=== PATIENT | female | born 1975 | race Caucasian/White ===

== ENCOUNTER 2017-10-30 06:49 | Inpatient (IN) | payer OTHER, MEDICARE ==
[~2017-10-30] VITALS: Ht 162.6 cm; Wt 102.8 kg
[~2017-10-30 06:49] MED LIST: ATOR20TA15 PO; GEMF600T PO; GLIM4TAB PO; HYDR-3583 PO; HYDR12.56 PO; LEVE500 PO; LISI40TA PO; METF1000 PO; MOBI15TA PO; MULT10CA PO
[2017-10-30] MEDS ORDERED: LIDOCAINE 1%/EPINEPHrine 1:100,000 SOLN 30 ML VIAL ONE (07:20)
[2017-10-30] MEDS ORDERED: MICROFIBRILLAR COLLAGEN HEMOSTAT 70 X 35 MM BANDAGE ONE (07:20)
[2017-10-30] MEDS ORDERED: GELFOAM SIZE 100 ONE (07:21)
[2017-10-30] MEDS ORDERED: ceFAZolin 2 GM PREMIX 50 ML ONE (07:21)
[2017-10-30] MEDS ORDERED: FUROSEMIDE 40 MG/4 ML VIAL ONE (07:21)
[2017-10-30] MEDS ORDERED: levETIRAcetam 500 MG/5 ML VIAL IV ONE (07:21)
[2017-10-30] MEDS ORDERED: GENTAMICIN SULFATE 80 MG/2 ML VIAL ONE (07:21)
[2017-10-30] MEDS ORDERED: BACITRACIN TOP OINT 15 GM TUBE ONE (07:21)
[2017-10-30] MEDS ORDERED: THROMBIN (TOPICAL) 5,000 UNIT VIAL ONE (07:21)
[2017-10-30] MEDS ORDERED: MANNITOL INJ 100 ML ONE (07:22)
[2017-10-30] MEDS ORDERED: LANTUS2P SQ (07:26)
[2017-10-30] MEDS ORDERED: SODIUM CHLOR 0.9% 1000 ML INJ 1,000 ML IV SCH (07:30)
[2017-10-30] MEDS ORDERED: LACTATED RINGER'S 1000 ML IV PRN (07:30)
[2017-10-30] MEDS ORDERED: SODIUM CHLORID 0.9% 500 ML IV PRN (07:30)
[2017-10-30] MEDS ORDERED: VANCOMYCIN 1 GM/200 ML PREMIX ON-CALL IV SCH (07:30)
[2017-10-30] MEDS ORDERED: CHLORHEXIDINE GLUCONATE 2 % 1 PACK (2 CLOTHS) TOPICAL PRN (07:30)
[2017-10-30] MEDS ORDERED: METOPROLOL TARTRATE 25 MG TAB PO PRN (07:30)
[2017-10-30] MEDS ORDERED: POVIDONE IODINE 5% (ANTISEPSIS KIT) 4 APPLICATIONS EACH NARE PRN (07:30)
[2017-10-30 07:41] LABS: BILIRUBIN, URINE NEG (NEG); BLOOD, URINE MOD (NEG); GLUCOSE,URINE NEG (NEG); KETONE, URINE NEG (NEG); NITRITE,URINE NEG (NEG); PH, URINE 5.5 (5.0-8.5); SQUAMOUS EPITHELIAL CELL URINE 17 /hpf (0-5); URINE COLOR YELLOW (YELLW/STRAW); URINE LEUKOCYTE ESTERASE NEG (NEG)
[2017-10-30] MEDS ORDERED: GADODIAMIDE PF 287 MG/ML 20 ML VIAL (for RAD MRI) IVCONTRAST ONE (09:03)
--- NOTE | 2017-10-30 09:50 | RADRPT ---
EXAM DATE/TIME: 10/30/2017 08:55 [facility] COMPARISON: No previous studies available for comparison. INDICATIONS : Mass. CONTRAST: 19 cc Omniscan (gadodiamide) IV MEDICAL HISTORY : Hypertension. Diabetes mellitus type 2. SURGICAL HISTORY : Carpal tunnel syndrome. External fixator and plate in left arm. ENCOUNTER: Initial ACUITY: 1 month PAIN SCORE: 0/10 LOCATION: head. TECHNIQUE: An MRI brain stealth procedure was performed. The information will be used in the OR for localizatio n. FINDINGS: A homogeneously enhancing extra-axial mass is identified in the left frontoparietal region. It measur es 1.6 x 3.9 x 3.6 cm in size. The mass effaces both the pre-and post central gyri. Minimal T2 hyperi ntensity is identified in the subcortical white matter of side-port the post central gyrus. Brain is otherwise unremarkable with no other intra-axial abnormalities. CONCLUSION: Moderate-sized enhancing left frontoparietal extra-axial mass characteristic of meningioma as describ ed. Sandip Busch MD on October 30, 2017 at 9:32 Board Certified Radiologist. This report was verified electronically.
[2017-10-30] MEDS ORDERED: ACETAMINOPHEN 1000 MG/100 ML 100 ML IV ONE (09:53)
[2017-10-30] MEDS ORDERED: ARTIFICIAL TEARS OPTH OINT 3.5 APPLIC/3.5 GM TUBO ONE (09:53)
[2017-10-30] MEDS ORDERED: MORPHINE SULFATE 4 MG/ML INJ IV PUSH PRN (10:00)
[2017-10-30] MEDS ORDERED: ACETAMINOPHEN 325 MG TAB PO PRN (10:00)
[2017-10-30] MEDS ORDERED: CALCIUM GLUCONATE 10% 1 GM/10 ML VIAL IV PRN (10:00)
[2017-10-30] MEDS ORDERED: BISACODYL 10 MG SUPP RECTAL PRN (10:00)
[2017-10-30] MEDS ORDERED: ACETAMINOPHEN/HYDROcodone 325 MG/10 MG TAB PO PRN ×2 (10:00)
[2017-10-30] MEDS ORDERED: POTASSIUM CHLOR 20 MEQ PREMIX 100 ML IV PRN (10:00)
[2017-10-30] MEDS ORDERED: MAGNESIUM SULFATE INJ 4 GM in SODIUM CHLORIDE 0.9% INJ 100 ML IV PRN (10:00)
[2017-10-30] MEDS ORDERED: ONDANSETRON HCL 4 MG/2 ML VIAL IV PUSH PRN (10:00)
[2017-10-30] MEDS ORDERED: GLUCAGON 1 MG/ML VIAL OTHER PRN (10:15)
[2017-10-30] MEDS ORDERED: DEXTROSE 50% IN WATER 50 ML VIAL(D50) IV PUSH PRN (10:15)
[2017-10-30] MEDS ORDERED: levETIRAcetam INJ 500 MG in SODIUM CHLORIDE 0.9% INJ 100 ML IV SCH (11:16)
[2017-10-30] MEDS ORDERED: PROPOFOL 500 MG/50 ML INJ 100 ML ONE (11:29)
[2017-10-30] MEDS ORDERED: ceFAZolin 2 GM PREMIX 50 ML IV ONE (11:38)
[2017-10-30] MEDS ORDERED: PROPOFOL 200 MG/20 ML AMP IV ONE (12:00)
[2017-10-30] MEDS ORDERED: ROCURONIUM INJ 50 MG/5 ML SYRINGE IV PUSH ONE (12:00)
[2017-10-30] MEDS ORDERED: LACTATED RINGER'S 1000 ML INJ 2,000 ML IV ONE (12:00)
[2017-10-30] MEDS: INSULIN ASPART SUPPLEMENTAL SCALE SQ SCH ×3 (12:00→20:03)
[2017-10-30] MEDS ORDERED: PHENYLEPH/NS 1000 MCG/10 ML SYR IV ONE (12:00)
[2017-10-30] MEDS ORDERED: ONDANSETRON HCL 4 MG/2 ML VIAL IV ONE (12:00)
[2017-10-30] MEDS ORDERED: DEXAMETHASONE SOD PHOS 4 MG/ML VIAL IV ONE (12:00)
[2017-10-30] MEDS ORDERED: SODIUM CHLORID 0.9% 500 ML INJ 500 ML IV ONE (12:00)
[2017-10-30] MEDS ORDERED: GLYCOPYRROLATE 1 MG/5 ML SYRINGE IV PUSH ONE (12:00)
[2017-10-30] MEDS ORDERED: NEOSTIGMINE 5 MG/5 ML SYRINGE IV PUSH ONE (12:00)
[2017-10-30] MEDS ORDERED: LIDOCAINE HCL 1% PF 5 ML SYRINGE OTHER ONE (12:00)
[2017-10-30] MEDS ORDERED: LABETALOL HCL 100 MG/20 ML VIAL IV ONE (12:00)
--- NOTE | 2017-10-30 12:27 | PD.OP ---
Operative Report Date of Surgery: Oct 30, 2017 Preoperative Diagnosis: Left extraaxial mass Postoperative Diagnosis: Left parietal meningioma Procedure: Stereotactic left parietal image-guided craniotomy, resection of meningioma. Microsurgical dissection Anesthesia: general endotracheal Surgeon: Urbano Gomes Personal Service Representative(s): Nicole Grayson Operation and Findings: INTRAOPERATIVE FINDINGS Dural base right frontal mass consistent with meningioma. INDICATIONS Ms Almendarez is a 42-year-old female who presented with recurrent seizures. She was found to have a large dural base frontal parietal mass with suspicion for a meningioma. This was causing mass effect on the underlying brain and was growing in serial MRI's. Surgical resection was indicated. I have discussed the [id number] details of the procedure, its indications, alternatives, risks and potential complications with the patient including but not limited to the risk of infection, hemorrhage, paralysis, stroke, heart attack, even vegetative state or even the possibility of . The patient fully understands. All her questions were answered. No guarantees were given. She voiced requesting the procedure and provided informed consent. She has been offered the alternative of not having aggressive management. DETAILS OF THE SURGICAL PROCEDURE Prior to the surgery the patient underwent MRI of the brain according to the stereotactic protocol. The information was transferred to the workstation located in the operative suite. Preoperative registration was performed. The patient was then transferred to the operating room. After induction of general anesthesia, endotracheal intubation was done. A Best catheter, bilateral JANNETTE hose, sequential compression devices were placed and kept throughout the procedure. The patient was positioned supine on a 30/80 table over gel rolls with her head in a flexed and rigid fixation using the [place] head char filter tank tender. All pressure points were carefully padded with egg crate mattress. The eyes were tapped shut after ointment was applied by the anesthesiologist to prevent corneal abrasion. A Taqueria hugger was placed over the expossed lower body to maintain control of the core body temperature. The electrophysiological team placed the needles and electrodes in their proper location and baseline SSEP's evoked potentials were registered. The rigid reference body was attached to the head char filter tank tender and intraoperative registration was performed with a brainlab laser. The frontotemporal parietal area was shaved, prepped and draped in the usual sterile fashion. A standard horseshoe incision was outlined on the scalp and infiltrated with 1% lidocaine with epinephrine. The skin incision was made with a #10 blade down to the level of the periosteum in the frontoparietal region and to the temporalis fascia in the temporal region. Mela clips were applied to the scalp. Using a Bovie, the temporalis fascia and muscle were incised and a subperiosteal dissection was performed reflecting the scalp flap inferiorly. The scalp was covered with a moist sponge and held in position using fish hooks. The TPS drill was brought to the field and a bur hole was made in the parietal region using the craniotome attachment. Then, using the footplate attachment, a craniotomy flap was elevated. The dura was bulging, with obvious mass effect due to the underlying tumor. The tumor was identified with the brainlab, and the dura was opened with a 15 blade and metzembaun sissors and retracted with 4- 0 Neurolon sutures attached to the fascia. A large dural based mass was identified. At this point of the procedure the operative microscope was draped in the usual sterile fashion and brought to the field. The rest of the surgical procedure was performed using microdissection technique with the exception of the closure. Under the operative microscope the mass was resected using microsurgical dissection technique, with the micro-bipolar forceps, microscissors, micro- suction, and gentle irrigation, preserving the tumor-arachnoid interface intact. The specimen was sent to the lab for histological analysis. Appropriate hemostasis was then secured using bipolar rotary pump operator. Then the incision was irrigated with saline solution. The dural edges were tacked to the bone. The craniotomy flap was then repositioned and secured in place using Striker plates and screws. A 7 millimeter Tino-Rowell drain was then left in the subgaleal space and externalized through a separate stab incision. The incision was then closed in layers. 0 Vicryl in interrupted sutures were used to close the temporalis fascia. The galea was closed with interrupted 3- 0 Vicryl. Jaden were applied to the skin. The drain was secured with a 3-0 nylon. At the end of the procedure, the sponge, needle and instrument counts were all correct. Estimated blood loss was less than 100 cc. No blood transfusion was given. No intraoperative complications occurred. The patient received prophylactic antibiotics. The patient was then transferred to the recovery room in stable condition. COMPLICATIONS None Urbano Gomes MD Oct 30, 2017 12:27
[2017-10-30] MEDS ORDERED: DO NOT ADM ANY ANTICOAGULANT DRUGS PRN (13:10)
[2017-10-30] MEDS: NS + KCL 20 MEQ INJ 1,000 ML IV SCH ×2 (13:30→22:00)
[2017-10-30] MEDS ORDERED: FOSPHENYTOIN SODIUM 500 MG PE/10 ML VIAL IM ONE (13:35)
[2017-10-30] MEDS ORDERED: MIDAZOLAM HCL 2 MG/2 ML VIAL ONE (13:35)
[2017-10-30] MEDS ORDERED: FOSPHENYTOIN INJ 1,000 MGPE in SODIUM CHLORIDE 0.9% INJ 50 ML IV ONE (14:30)
--- NOTE | 2017-10-30 14:35 | EKG ---
Date Performed: 10/30/2017 Time Performed: 08:06:25 PTAGE: 42 years EKG: Sinus rhythm NORMAL ECG NO PREVIOUS TRACING DOCTOR: Clarke Piper Interpretating Date/Time 10/30/2017 14:33:24
[2017-10-30 16:00] VITALS: BP 106/59; PULSE 84; RESP 18; TEMP 98; O2SAT 99
[2017-10-30] MEDS: GEMFIBROZIL 600 MG TAB PO SCH (16:08)
[2017-10-30] MEDS: ACETAMINOPHEN/HYDROcodone 325 MG/10 MG TAB PO PRN (16:08)
[2017-10-30] MEDS: MORPHINE SULFATE 4 MG/ML INJ IV PUSH PRN ×2 (16:38→20:04)
[2017-10-30 17:00] VITALS: BP 105/55; PULSE 84; RESP 22; TEMP 98; O2SAT 95
[2017-10-30] MEDS: metFORMIN HCL 500 MG TAB PO SCH (17:29)
[2017-10-30 18:00] VITALS: BP 109/58; PULSE 80; PULSE 84; RESP 22; TEMP 98.2; O2SAT 95
--- NOTE | 2017-10-30 18:38 | PD.CONS ---
[facility] Service Critical Care Medicine Consult Requested By Primary Care Physician No Primary Care Physician History of Present Illness Ms Almendarez is a 42-year-old female who presented with recurrent seizures. She was found to have a large dural base frontal parietal mass with suspicion for a meningioma. This was causing mass effect on the underlying brain and was growing in serial MRI's. Surgical resection was indicated. Patient underwent craniotomy with resection of frontoparietal mass under general anesthesia by Dr. Gomes, tolerated procedure well was subsequently extubated and transferred to PACU and then to [facility]. Critical care consult was requested by Dr. Gomes for medical management postoperatively. When I evaluated the patient in the ICU she was resting comfortably sitting up in bed not in any acute distress. PFSH Past Medical History Cancer: No Cardiovascular Problems: No Diabetes: Yes Endocrine: Yes Genitourinary: No Hepatitis: No Hiatal Hernia: No Immune Disorder: No Musculoskeletal: Yes (LEFT ARM IMMOBILE (TRAUMA)) Neurologic: Yes (MIGRANES) Psychiatric: No Reproductive: No Respiratory: No Thyroid Disease: No Past Surgical History AICD: No Body Medical Devices: LEFT ARM HARDWARE Ear Surgery: Yes (PE TUBES) Joint Replacement: No Oral Surgery: Yes (T & A) Pacemaker: No Social History Alcohol Use: Yes Tobacco Use: Yes Substance Use: No Allergies-Medications (Allergen,Severity, Reaction): Coded Allergies: No Known Allergies (Unverified , 07/31/15) Reported Meds & Prescriptions Current Medications Medications (Trade) Dose Ordered Sig/Katlyn Route PRN Reason Start Time Stop Time Status Last Admin Dose Admin Vancomycin/Sodium Chloride 200 ml @ 200 mls/hr FIRE SPRINKLER INSPECTOR IV 10/30/17 07:30 11/02/17 07:29 Metoprolol Tartrate (Lopressor) 25 mg FIRE SPRINKLER INSPECTOR PRN PO SEE LABEL COMMENTS 10/30/17 07:30 11/02/17 07:29 Povidone Iodine (Betadine 5% Antisepsis Kit) 1 applic FIRE SPRINKLER INSPECTOR PRN EACH NARE SEE LABEL COMMENTS 10/30/17 07:30 11/02/17 07:29 Chlorhexidine Gluconate (Chlorhexidine 2% Cloth) 3 pack FIRE SPRINKLER INSPECTOR PRN TOPICAL SEE LABEL COMMENTS 10/30/17 07:30 11/02/17 07:29 10/30/17 07:35 Potassium Chloride/Sodium Chloride 1,000 ml @ 100 mls/hr Q10H IV 10/30/17 12:00 10/30/17 13:30 Cefazolin Sodium 2000 mg/Sodium Chloride 120 ml @ 240 mls/hr Q8H IV 10/30/17 20:00 10/31/17 12:29 Bisacodyl (Dulcolax Supp) 10 mg DAILY PRN RECTAL SEVERE CONSTIPATION 10/30/17 10:00 Docusate Sodium (Colace) 100 mg BID PO 10/30/17 21:00 Pantoprazole Sodium (Protonix) 40 mg DAILY PO 10/31/17 09:00 Pantoprazole Sodium (Protonix Inj) 40 mg DAILY IVP 10/31/17 09:00 Ondansetron HCl (Zofran Inj) 4 mg Q6H PRN IV PUSH NAUSEA OR VOMITING 10/30/17 10:00 Calcium Gluconate (Calcium Gluconate Inj) 1 gm UNSCH PRN IV SEE LABEL COMMENTS 10/30/17 10:00 Potassium Chloride 100 ml @ 50 mls/hr UNSCH PRN IV POTASSIUM LESS THAN 4 10/30/17 10:00 Magnesium Sulfate 4 gm/Sodium Chloride 108 ml @ 108 mls/hr UNSCH PRN IV MAGNESIUM LESS THAN 2 10/30/17 10:00 Acetaminophen/ Hydrocodone Bitart ([place] 10-325 Mg) 1 tab Q4H PRN PO PAIN SCALE 1 TO 5 10/30/17 10:00 Acetaminophen/ Hydrocodone Bitart ([place] 10-325 Mg) 2 tab Q4H PRN PO PAIN SCALE 6 TO 10 10/30/17 10:00 10/30/17 16:08 Morphine Sulfate (Morphine Inj) 2 mg Q2H PRN IV PUSH PAIN SCALE 1 TO 6 10/30/17 10:00 Morphine Sulfate (Morphine Inj) 4 mg Q2H PRN IV PUSH PAIN SCALE 7 TO 10 10/30/17 10:00 10/30/17 16:38 Acetaminophen (Tylenol) 650 mg Q4H PRN PO TEMPERATURE > 101.5 F 10/30/17 10:00 Atorvastatin Calcium (Lipitor) 20 mg HS PO 10/30/17 21:00 Gemfibrozil (Lopid) 600 mg BIDAC PO 10/30/17 16:00 10/30/17 16:08 Glimepiride (Amaryl) 4 mg DAILY PO 10/31/17 09:00 Hydrochlorothiazide (Microzide) 12.5 mg DAILY PO 10/31/17 09:00 Insulin Detemir (Levemir Inj) 40 units HS SQ 10/30/17 21:00 Meloxicam (Mobic) 15 mg DAILY PO 10/31/17 09:00 Metformin HCl (Glucophage) 1,000 mg BIDPC PO 10/30/17 18:00 Lisinopril (Prinivil) 40 mg HS PO 10/30/17 21:00 Dextrose (D50w (Vial) Inj) 50 ml UNSCH PRN IV PUSH HYPOGLYCEMIA-SEE COMMENTS 10/30/17 10:15 Glucagon (Glucagon Inj) 1 mg UNSCH PRN OTHER HYPOGLYCEMIA-SEE COMMENTS 10/30/17 10:15 Insulin Aspart (NovoLOG SUPPLEMENTAL SCALE) 1 ACHS SLIDING SCALE SQ 10/30/17 12:00 Levetriacetam (Keppra) 500 mg BID PO 10/30/17 21:00 Levetriacetam 500 mg/Sodium Chloride 105 ml @ 400 mls/hr Q12HR IV 10/30/17 21:00 Miscellaneous Information ALL NURSING DEPARTME... UNSCH PRN .XX SEE LABEL COMMENTS 10/30/17 13:10 10/31/17 13:09 Physical Exam Vital Signs Vital Signs Date Time Temp Pulse Resp B/P (MAP) Pulse Ox O2 Delivery O2 Flow Rate FiO2 10/30/17 15:15 98.7 75 16 109/64 (79) 94 Nasal Cannula 3 10/30/17 15:00 75 16 93/53 (66) 94 Nasal Cannula 3 10/30/17 14:45 84 16 97/55 (69) 94 Nasal Cannula 3 10/30/17 14:30 76 16 100/53 (69) 94 Nasal Cannula 3 10/30/17 14:15 74 16 104/55 (71) 94 Nasal Cannula 3 10/30/17 14:00 80 16 100/55 (70) 94 Nasal Cannula 3 10/30/17 13:45 77 16 105/50 (68) 94 Nasal Cannula 3 10/30/17 13:30 78 16 102/55 (71) 93 Nasal Cannula 3 10/30/17 13:15 82 16 110/59 (76) 93 Nasal Cannula 3 10/30/17 13:13 98.7 84 16 104/57 (73) 93 Nasal Cannula 3 10/30/17 07:42 97.9 80 20 108/72 (84) 95 Physical Exam HEENT/Neuro: Dressing over craniotomy site clean dry and intact. KAREN drains in place with serosanguineous drainage. No pallor or icterus, tongue moist, MEGAN , Awake alert oriented 3, chronic right upper external any weakness with atrophy from prior injury, moving right upper and both lower extremities. Neck: No JVD Chest/pulmonary: CTA bilaterally Cardiovascular: S1-S2 regular no gallop or murmur GI/abdomen: Soft, nontender, bowel sounds present Extremities: Warm bilaterally, no edema Laboratory Laboratory Tests Test 10/30/17 07:00 10/30/17 07:35 Urine Color YELLOW Urine Turbidity HAZY Urine pH 5.5 Urine Specific [place] 1.020 Urine Protein 30 Urine Glucose (UA) NEG Urine Ketones NEG Urine Occult Blood MOD Urine Nitrite NEG Urine Bilirubin NEG Urine Urobilinogen LESS THAN 2.0 Urine Leukocyte Esterase NEG Urine RBC 2 Urine WBC 3 Urine Squamous Epithelial Cells 17 Microscopic Urinalysis Comment CULT NOT INDICATED Activated Partial Thromboplast Time 26.4 Assessment and Plan Assessment and Plan 42-year-old female with: Frontoparietal dural based mass status post craniotomy with resection Diabetes mellitus Hyperlipidemia Hypertension Plan: Continue neurochecks per ICU protocol. Being followed by neurosurgery following craniotomy. IV hydration Continue antihypertensives home dose. Advance diet as tolerated. Sliding-scale insulin, continue home antidiabetic regimen GI prophylaxis with PPI DVT prophylaxis with SCDs. No heparin or Lovenox till cleared by neurosurgery. Appears to be doing well after surgery. Will consult hospitalist service for further medical management starting tomorrow. Critical care will be available as needed. Calvin Castillo MD Oct 30, 2017 18:38
[2017-10-30] MEDS ORDERED: MORPHINE SULFATE 4 MG/ML INJ ONE (18:40)
[2017-10-30 20:00] VITALS: BP 105/63; PULSE 77; PULSE 82; RESP 20; TEMP 98.4; O2SAT 97
[2017-10-30] MEDS: DOCUSATE SODIUM 100 MG CAP PO SCH (20:01)
[2017-10-30] MEDS: ATORVASTATIN 20 MG TAB PO SCH (20:02)
[2017-10-30] MEDS: levETIRAcetam INJ 500 MG in SODIUM CHLORIDE 0.9% INJ 100 ML IV SCH (20:02)
[2017-10-30] MEDS: CEFAZOLIN INJ 2,000 MG in SODIUM CHLORIDE 0.9% INJ 100 ML IV SCH (20:02)
[2017-10-30] MEDS: levETIRAcetam 500 MG TAB PO SCH (20:02)
[2017-10-30] MEDS: INSULIN DETEMIR 100 UNITS/ML VIAL SQ SCH (20:03)
[2017-10-30] MEDS: LISINOPRIL 20 MG TAB PO SCH (20:03)
[2017-10-30] MEDS ORDERED: levETIRAcetam 500 MG TAB PO SCH (21:00)
[2017-10-30] MEDS: NICOTINE 14 MG/24 HR PATCH T-DERMAL SCH (21:30)
[2017-10-30 22:00] VITALS: PULSE 77
[2017-10-31] VITALS (11 sets, daily range): BP systolic 95–121; BP diastolic 53–70; PULSE 68–104; RESP 16–22; TEMP 97.8–99.4; O2SAT 93–100
[2017-10-31] MEDS: ACETAMINOPHEN/HYDROcodone 325 MG/10 MG TAB PO PRN ×5 (00:52→21:44)
[2017-10-31] MEDS: CEFAZOLIN INJ 2,000 MG in SODIUM CHLORIDE 0.9% INJ 100 ML IV SCH ×2 (04:05→12:57)
[2017-10-31] MEDS: GEMFIBROZIL 600 MG TAB PO SCH ×2 (06:24→17:16)
[2017-10-31] MEDS: MORPHINE SULFATE 4 MG/ML INJ IV PUSH PRN (06:25)
[2017-10-31 07:20] LABS: AUTOMATED NEUTROPHIL # 7.3 TH/MM3 (1.8-7.7); BASOPHIL % 0.4 % (0.0-2.0); EOSINOPHIL # 0.1 TH/MM3 (0-0.4); HEMATOCRIT 29.6 % (35.0-46.0); HEMOGLOBIN 9.9 GM/DL (11.6-15.3); LYMPH % 26.8 % (9.0-44.0); LYMPHOCYTE # 2.9 TH/MM3 (1.0-4.8); MEAN CELL VOLUME 84.8 FL (80.0-100.0); MEAN CORPUSCULAR HEMOGLOBIN 28.2 PG (27.0-34.0); MEAN CORPUSCULAR HGB CONC 33.3 % (32.0-36.0); MEAN PLATELET VOLUME 7.6 FL (7.0-11.0); MONO % 5.5 % (0.0-8.0); MONOCYTE # 0.6 TH/MM3 (0-0.9); NEUT % 66.3 % (16.0-70.0); PLATELET COUNT 311 TH/MM3 (150-450); RED BLOOD COUNT 3.49 MIL/MM3 (4.00-5.30); RED CELL DISTRIBUTION WIDTH 16.2 % (11.6-17.2)
[2017-10-31 07:39] LABS: BICARBONATE 23.3 MEQ/L (21.0-32.0); CALCIUM 8.3 MG/DL (8.5-10.1); CREATININE 0.68 MG/DL (0.50-1.00)
[2017-10-31] MEDS: INSULIN ASPART SUPPLEMENTAL SCALE SQ SCH ×4 (08:00→21:26)
[2017-10-31] MEDS: NS + KCL 20 MEQ INJ 1,000 ML IV SCH ×2 (08:44→17:28)
[2017-10-31] MEDS: levETIRAcetam INJ 500 MG in SODIUM CHLORIDE 0.9% INJ 100 ML IV SCH ×2 (08:45→21:32)
[2017-10-31] MEDS: MELOXICAM 15 MG TAB PO SCH (08:46)
[2017-10-31] MEDS: levETIRAcetam 500 MG TAB PO SCH ×2 (08:46→21:27)
[2017-10-31] MEDS: DOCUSATE SODIUM 100 MG CAP PO SCH ×2 (08:46→21:29)
[2017-10-31] MEDS: HYDROCHLOROTHIAZIDE 12.5 MG CAP PO SCH (08:46)
[2017-10-31] MEDS: PANTOPRAZOLE SOD 40 MG DELAYED RELEASE TAB PO SCH (08:46)
[2017-10-31] MEDS: NICOTINE 14 MG/24 HR PATCH T-DERMAL SCH (08:46)
[2017-10-31] MEDS: metFORMIN HCL 500 MG TAB PO SCH ×2 (08:47→17:27)
[2017-10-31] MEDS: GLIMEPIRIDE 4 MG TAB PO SCH (08:47)
[2017-10-31] MEDS ORDERED: NON-FORMULARY DRUG (Vit C/E/Zn/Coppr/Lutein/Zeaxan (Preservision Areds 2 Softgel) 1 CAP) PO SCH (09:00)
[2017-10-31] MEDS ORDERED: PANTOPRAZOLE SODIUM 40 MG VIAL IVP SCH (09:00)
--- NOTE | 2017-10-31 11:12 | HHI.NSPN ---
(Fidelina Hamilton) Note Status Status: Progress Note (Fidelina Hamilton) Interval History Interval History Ms Almendarez is a 42-year-old female who presented with recurrent seizures. She was found to have a large dural base frontal parietal mass with suspicion for a meningioma. This was causing mass effect on the underlying brain and was growing in serial MRI's. Surgical resection was indicated. Ms. Almendarez underwent a stereotactic left parietal image-guided craniotomy, resection of meningioma on Oct 30, 2017. 10/31: doing well, c/o postoperative pain. no change to neuro exam. (Fidelina Hamilton) Labs, Micro, & Vital Signs Results Date Time Temp Pulse Resp B/P (MAP) Pulse Ox O2 Delivery O2 Flow Rate FiO2 10/31/17 06:00 77 10/31/17 04:00 74 10/31/17 04:00 98.5 74 16 95/53 (67) 95 10/31/17 02:00 84 10/31/17 00:00 99.4 82 18 99/56 (70) 93 10/31/17 00:00 82 10/30/17 22:00 77 10/30/17 20:00 97 Nasal Cannula 2.00 10/30/17 20:00 82 10/30/17 20:00 98.4 77 20 105/63 (77) 97 10/30/17 18:00 98.2 80 22 109/58 (75) 95 10/30/17 18:00 84 10/30/17 17:00 98.0 84 22 105/55 (72) 95 10/30/17 16:00 84 10/30/17 16:00 98.0 84 18 106/59 (75) 99 10/30/17 15:15 98.7 75 16 109/64 (79) 94 Nasal Cannula 3 10/30/17 15:00 75 16 93/53 (66) 94 Nasal Cannula 3 10/30/17 14:45 84 16 97/55 (69) 94 Nasal Cannula 3 10/30/17 14:30 76 16 100/53 (69) 94 Nasal Cannula 3 10/30/17 14:15 74 16 104/55 (71) 94 Nasal Cannula 3 10/30/17 14:00 80 16 100/55 (70) 94 Nasal Cannula 3 10/30/17 13:45 77 16 105/50 (68) 94 Nasal Cannula 3 10/30/17 13:30 78 16 102/55 (71) 93 Nasal Cannula 3 10/30/17 13:15 82 16 110/59 (76) 93 Nasal Cannula 3 10/30/17 13:13 98.7 84 16 104/57 (73) 93 Nasal Cannula 3 Constitutional Vital Signs Date Time Temp Pulse Resp B/P (MAP) Pulse Ox O2 Delivery O2 Flow Rate FiO2 10/31/17 06:00 77 10/31/17 04:00 74 10/31/17 04:00 98.5 74 16 95/53 (67) 95 10/31/17 02:00 84 10/31/17 00:00 99.4 82 18 99/56 (70) 93 10/31/17 00:00 82 10/30/17 22:00 77 10/30/17 20:00 97 Nasal Cannula 2.00 10/30/17 20:00 82 10/30/17 20:00 98.4 77 20 105/63 (77) 97 10/30/17 18:00 98.2 80 22 109/58 (75) 95 10/30/17 18:00 84 10/30/17 17:00 98.0 84 22 105/55 (72) 95 10/30/17 16:00 84 10/30/17 16:00 98.0 84 18 106/59 (75) 99 10/30/17 15:15 98.7 75 16 109/64 (79) 94 Nasal Cannula 3 10/30/17 15:00 75 16 93/53 (66) 94 Nasal Cannula 3 10/30/17 14:45 84 16 97/55 (69) 94 Nasal Cannula 3 10/30/17 14:30 76 16 100/53 (69) 94 Nasal Cannula 3 10/30/17 14:15 74 16 104/55 (71) 94 Nasal Cannula 3 10/30/17 14:00 80 16 100/55 (70) 94 Nasal Cannula 3 10/30/17 13:45 77 16 105/50 (68) 94 Nasal Cannula 3 10/30/17 13:30 78 16 102/55 (71) 93 Nasal Cannula 3 10/30/17 13:15 82 16 110/59 (76) 93 Nasal Cannula 3 10/30/17 13:13 98.7 84 16 104/57 (73) 93 Nasal Cannula 3 (Fidelina Hamilton) Physical Exam Ms. Almendarez is alert, awake and oriented to time, place and person. Speech is fluent. Wound with dressing and bandaged some bloody saturation. KAREN drains intact with serosanguineous CSF Cranial nerve examination: pupils equal, round and reactive to light. Extra- ocular movements are intact. Facial motor are normal and symmetrical. Neck is soft and supple Musculoskeletal: Left upper extremity muscular deformities with evidence of prior reconstructive surgeries. 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 5/5 right deltoid, biceps, triceps and elementary school counselor. In the lower extremities, strength is 5 /5 in LE's Sensory examination is decreased to left arm, otherwise intact to light touch right upper extremity and bilateral lower extremities. Lungs: clear, non labored breathing, no wheezing Heart: regular rate and rhythm (Fidelina Hamilton) Medications Current Medications Current Medications Medications (Trade) Dose Ordered Sig/Katlyn Route PRN Reason Start Time Stop Time Status Last Admin Dose Admin Vancomycin/Sodium Chloride 200 ml @ 200 mls/hr CHRISTIAN SCIENCE PRACTITIONER IV 10/30/17 07:30 11/02/17 07:29 Metoprolol Tartrate (Lopressor) 25 mg CHRISTIAN SCIENCE PRACTITIONER PRN PO SEE LABEL COMMENTS 10/30/17 07:30 11/02/17 07:29 Povidone Iodine (Betadine 5% Antisepsis Kit) 1 applic CHRISTIAN SCIENCE PRACTITIONER PRN EACH NARE SEE LABEL COMMENTS 10/30/17 07:30 11/02/17 07:29 Chlorhexidine Gluconate (Chlorhexidine 2% Cloth) 3 pack CHRISTIAN SCIENCE PRACTITIONER PRN TOPICAL SEE LABEL COMMENTS 10/30/17 07:30 11/02/17 07:29 10/30/17 07:35 Potassium Chloride/Sodium Chloride 1,000 ml @ 100 mls/hr Q10H IV 10/30/17 12:00 10/31/17 08:44 Cefazolin Sodium 2000 mg/Sodium Chloride 120 ml @ 240 mls/hr Q8H IV 10/30/17 20:00 10/31/17 12:29 10/31/17 04:05 Bisacodyl (Dulcolax Supp) 10 mg DAILY PRN RECTAL SEVERE CONSTIPATION 10/30/17 10:00 Docusate Sodium (Colace) 100 mg BID PO 10/30/17 21:00 10/31/17 08:46 Pantoprazole Sodium (Protonix) 40 mg DAILY PO 10/31/17 09:00 10/31/17 08:46 Pantoprazole Sodium (Protonix Inj) 40 mg DAILY IVP 10/31/17 09:00 Ondansetron HCl (Zofran Inj) 4 mg Q6H PRN IV PUSH NAUSEA OR VOMITING 10/30/17 10:00 Calcium Gluconate (Calcium Gluconate Inj) 1 gm UNSCH PRN IV SEE LABEL COMMENTS 10/30/17 10:00 Potassium Chloride 100 ml @ 50 mls/hr UNSCH PRN IV POTASSIUM LESS THAN 4 10/30/17 10:00 Magnesium Sulfate 4 gm/Sodium Chloride 108 ml @ 108 mls/hr UNSCH PRN IV MAGNESIUM LESS THAN 2 10/30/17 10:00 Acetaminophen/ Hydrocodone Bitart ([place] 10-325 Mg) 1 tab Q4H PRN PO PAIN SCALE 1 TO 5 10/30/17 10:00 Acetaminophen/ Hydrocodone Bitart ([place] 10-325 Mg) 2 tab Q4H PRN PO PAIN SCALE 6 TO 10 10/30/17 10:00 10/31/17 08:59 Morphine Sulfate (Morphine Inj) 2 mg Q2H PRN IV PUSH PAIN SCALE 1 TO 6 10/30/17 10:00 Morphine Sulfate (Morphine Inj) 4 mg Q2H PRN IV PUSH PAIN SCALE 7 TO 10 10/30/17 10:00 10/31/17 06:25 Acetaminophen (Tylenol) 650 mg Q4H PRN PO TEMPERATURE > 101.5 F 10/30/17 10:00 Atorvastatin Calcium (Lipitor) 20 mg HS PO 10/30/17 21:00 10/30/17 20:02 Gemfibrozil (Lopid) 600 mg BIDAC PO 10/30/17 16:00 10/31/17 06:24 Glimepiride (Amaryl) 4 mg DAILY PO 10/31/17 09:00 10/31/17 08:47 Hydrochlorothiazide (Microzide) 12.5 mg DAILY PO 10/31/17 09:00 10/31/17 08:46 Insulin Detemir (Levemir Inj) 40 units HS SQ 10/30/17 21:00 10/30/17 20:03 Meloxicam (Mobic) 15 mg DAILY PO 10/31/17 09:00 10/31/17 08:46 Metformin HCl (Glucophage) 1,000 mg BIDPC PO 10/30/17 18:00 Lisinopril (Prinivil) 40 mg HS PO 10/30/17 21:00 10/30/17 20:03 Dextrose (D50w (Vial) Inj) 50 ml UNSCH PRN IV PUSH HYPOGLYCEMIA-SEE COMMENTS 10/30/17 10:15 Glucagon (Glucagon Inj) 1 mg UNSCH PRN OTHER HYPOGLYCEMIA-SEE COMMENTS 10/30/17 10:15 Insulin Aspart (NovoLOG SUPPLEMENTAL SCALE) 1 ACHS SLIDING SCALE SQ 10/30/17 12:00 10/31/17 08:00 Levetriacetam (Keppra) 500 mg BID PO 10/30/17 21:00 10/31/17 08:46 Levetriacetam 500 mg/Sodium Chloride 105 ml @ 400 mls/hr Q12HR IV 10/30/17 21:00 Miscellaneous Information ALL NURSING DEPARTME... UNSCH PRN .XX SEE LABEL COMMENTS 10/30/17 13:10 10/31/17 13:09 Nicotine (Habitrol 14 Mg Patch.24 Hr) 1 patch DAILY T-DERMAL 10/30/17 21:22 10/31/17 08:46 Miscellaneous Information 1 HS T-DERMAL 10/31/17 21:00 (Fidelina Hamilton) Medical Decision Making MDM Remarks 42 y/o female s/p stereotactic left parietal image-guided craniotomy, resection of meningioma 10/30/17 (Fidelina Hamilton) Plan Plan Remarks doing well, neuro exam stable f/u CT Brain this am PT, start mobilizing OOB cont postop pain control cont KAREN draining replace bandages (Fidelina Hamilton) Attending Statement The exam, history, and the medical decision-making described in the above note were completed with the assistance of the mid-level provider. I reviewed and agree with the findings presented. I attest that I had a [id number] encounter with the patient on the same day, and personally performed and documented my assessment and findings in the medical record. (Urbano Gomes MD) Fidelina Hamilton Oct 31, 2017 11:12 Urbano Gomes MD Oct 31, 2017 17:16
--- NOTE | 2017-10-31 12:51 | RADRPT ---
EXAM DATE/TIME: 10/31/2017 12:02 [facility] COMPARISON: MRI BRAIN STEALTH W CONTRAST, October 30, 2017, 8:55. INDICATIONS : Post op craniotomy for tumor RADIATION DOSE: 36.12 CTDIvol (mGy) MEDICAL HISTORY : Seizures. Hypertension. Chronic obstructive pulmonary disease.Diabetes SURGICAL HISTORY : Craniotomy. ENCOUNTER: Initial ACUITY: 1 day PAIN SCALE: 4/10 LOCATION: cranial TECHNIQUE: Multiple contiguous axial images were obtained of the head. Using automated exposure control and adj ustment of the mA and/or kV according to patient size, radiation dose was kept as low as reasonably a chievable to obtain optimal diagnostic quality images. DICOM format image data is available electro nically for review and comparison. FINDINGS: There has been left parietal craniotomy. A subdural drain is present. A small focus of spontaneously increased density in the superficial brain presumably at site of tumor resection. Mild adjacent paren chymal edema is noted. The contralateral right hemisphere is stable and unremarkable. The posterior f shay and brainstem structures are normal. Ventricles are stable symmetric and unremarkable. CONCLUSION: Postoperative brain appearance as above Zbigniew Calles MD on October 31, 2017 at 12:47 Board Certified Radiologist. This report was verified electronically.
--- NOTE | 2017-10-31 18:53 | HHI.PR ---
Subjective Remarks Follow up for left parietal meningoma. Patient is currently doing well. No acute concerns. Pain control is good. No fever, chills. Objective Vitals Vital Signs Date Time Temp Pulse Resp B/P (MAP) Pulse Ox O2 Delivery O2 Flow Rate FiO2 10/31/17 07:00 94 Room Air 10/31/17 06:00 77 10/31/17 04:00 74 10/31/17 04:00 98.5 74 16 95/53 (67) 95 10/31/17 02:00 84 10/31/17 00:00 99.4 82 18 99/56 (70) 93 10/31/17 00:00 82 10/30/17 22:00 77 10/30/17 20:00 97 Nasal Cannula 2.00 10/30/17 20:00 82 10/30/17 20:00 98.4 77 20 105/63 (77) 97 I/O 10/30/17 10/30/17 10/30/17 10/31/17 10/31/17 10/31/17 06:59 14:59 22:59 06:59 14:59 22:59 Intake Total 2500 ml 720 ml 2000 ml Output Total 500 ml 2560 ml 4110 ml Balance 2000 ml -1840 ml -2110 ml Intake Oral 720 ml 560 ml IV Total 1440 ml Other 2500 ml Output Urine Total 400 ml 2400 ml 3950 ml Drainage Total 160 ml 160 ml Estimated Blood Loss 100 ml # Bowel Movements 0 Result Diagram: 10/31/17 0612 10/31/17 0612 Imaging Last Impressions Head CT 10/31/17 0000 Signed Impressions: Service Date/Time: Tuesday, October 31, 2017 12:02 - CONCLUSION: Postoperative brain appearance as above Zbigniew Calles MD Brain MRI 10/30/17 0000 Signed Impressions: Service Date/Time: Monday, October 30, 2017 08:55 - CONCLUSION: Moderate- sized enhancing left frontoparietal extra-axial mass characteristic of meningioma as described. Sandip Busch MD Objective Remarks GENERAL: Alert, NAD. SKIN: Warm and dry. HEAD: Normocephalic. Dressing is in place, drains in place. EYES: No scleral icterus. No injection or drainage. NECK: Supple, trachea midline. No JVD or lymphadenopathy. CARDIOVASCULAR: Regular rate and rhythm without murmurs, gallops, or rubs. RESPIRATORY: Breath sounds equal bilaterally. No accessory muscle use. GASTROINTESTINAL: Abdomen soft, non-tender, nondistended. MUSCULOSKELETAL: No cyanosis, or edema. BACK: Nontender without obvious deformity. No CVA tenderness. Procedures 10/30/2017 Stereotactic left parietal image-guided craniotomy, resection of meningioma. Microsurgical dissection A/P Assessment and Plan Ms Almendarez is a 42-year-old female who presented with recurrent seizures. She was found to have a large dural base frontal parietal mass with suspicion for a meningioma. This was causing mass effect on the underlying brain and was growing in serial MRI's. Surgical resection was indicated. Patient underwent craniotomy with resection of frontoparietal mass. Left parietal meningoma s/p surgical resection 10/30/2017. Pain meds, Keppra 500mg BID. Diabetes mellitus Currently pt is on Glimepiride 4mg Qday, Metformin 1000mg BID and Levemir 45 units as well as medium sliding scale insulin. Hyperlipidemia Hypertension Continue Atorvastatin and Gemfibrozil. Continue Lisinopril 40mg and HCTZ 12.5mg Full code. SCDs. Nidia Chadwick DO Oct 31, 2017 6:53 pm
[2017-10-31] MEDS ORDERED: REMOVE OLD PATCH T-DERMAL SCH (21:00)
[2017-10-31] MEDS: INSULIN DETEMIR 100 UNITS/ML VIAL SQ SCH (21:25)
[2017-10-31] MEDS: ATORVASTATIN 20 MG TAB PO SCH (21:28)
[2017-10-31] MEDS: LISINOPRIL 20 MG TAB PO SCH (21:30)
[2017-11-01] VITALS: BP 116/63; PULSE 72; RESP 18; TEMP 97.3; O2SAT 96
[2017-11-01] MEDS: NS + KCL 20 MEQ INJ 1,000 ML IV SCH ×2 (02:01→03:05)
[2017-11-01] MEDS: ACETAMINOPHEN/HYDROcodone 325 MG/10 MG TAB PO PRN ×3 (02:01→11:58)
[2017-11-01 02:07] VITALS: BP 112/57; PULSE 81; RESP 20; TEMP 97.8; O2SAT 95
[2017-11-01 04:44] VITALS: BP 110/59; PULSE 78; RESP 20; TEMP 98.3; O2SAT 94
[2017-11-01] MEDS: GEMFIBROZIL 600 MG TAB PO SCH (06:18)
[2017-11-01 08:00] VITALS: BP 118/63; PULSE 80; RESP 18; TEMP 98.4; O2SAT 94
[2017-11-01] MEDS: HYDROCHLOROTHIAZIDE 12.5 MG CAP PO SCH (09:00)
[2017-11-01] MEDS ORDERED: HYDR-3583 PO (09:11)
[2017-11-01] MEDS: NICOTINE 14 MG/24 HR PATCH T-DERMAL SCH (09:17)
[2017-11-01] MEDS: metFORMIN HCL 500 MG TAB PO SCH (09:18)
[2017-11-01] MEDS: DOCUSATE SODIUM 100 MG CAP PO SCH (09:18)
[2017-11-01] MEDS: levETIRAcetam 500 MG TAB PO SCH (09:19)
[2017-11-01] MEDS: GLIMEPIRIDE 4 MG TAB PO SCH (09:19)
[2017-11-01] MEDS: PANTOPRAZOLE SOD 40 MG DELAYED RELEASE TAB PO SCH (09:20)
[2017-11-01] MEDS: MELOXICAM 15 MG TAB PO SCH (09:20)
[2017-11-01] MEDS: MORPHINE SULFATE 4 MG/ML INJ IV PUSH PRN (09:23)
[2017-11-01] MEDS: INSULIN ASPART SUPPLEMENTAL SCALE SQ SCH (09:28)
--- NOTE | 2017-11-01 10:40 | HHI.DCPOC ---
Discharge Care Plan Diagnosis: (1) S/P craniotomy Goals to Promote Your Health * To prevent worsening of your condition and complications * To maintain your health at the optimal level Directions to Meet Your Goals Take your medications as prescribed Follow your dietary instruction Follow activity as directed Keep your appointments as scheduled Take your immunizations and boosters as scheduled If your symptoms worsen call your PCP, if no PCP go to Urgent Care Center or Emergency Room Smoking is Dangerous to Your Health. Avoid second hand smoke Call the 24-hour hour crisis hotline for domestic abuse at Fidelina Hamilton Nov 01, 2017 10:40
--- NOTE | 2017-11-01 10:42 | HHI.DS ---
Discharge Summary Admission Date Oct 30, 2017 at 06:49 Discharge Date: Nov 01, 2017 Admitting Diagnosis s/p craniotomy resection of meningioma (1) S/P craniotomy ICD Code: Z98.890 - Other specified postprocedural states Brief History Ms Almendarez is a 42-year-old female who presented with recurrent seizures. She was found to have a large dural base frontal parietal mass with suspicion for a meningioma. This was causing mass effect on the underlying brain and was growing in serial MRI's. Surgical resection was indicated. CBC/BMP: 10/31/17 0612 10/31/17 0612 Significant Findings Laboratory Tests Test 10/30/17 07:00 10/30/17 07:35 10/31/17 06:12 Urine Turbidity HAZY (CLEAR) Urine Protein 30 mg/dL (NEG-TRACE) Urine Occult Blood MOD (NEG) Red Blood Count 3.49 MIL/MM3 (4.00-5.30) Hemoglobin 9.9 GM/DL (11.6-15.3) Hematocrit 29.6 % (35.0-46.0) Random Glucose 139 MG/DL (74-106) Calcium Level 8.3 MG/DL (8.5-10.1) Chloride Level 110 MEQ/L (98-107) Imaging Last Impressions Head CT 10/31/17 0000 Signed Impressions: Service Date/Time: Tuesday, October 31, 2017 12:02 - CONCLUSION: Postoperative brain appearance as above Zbigniew Calles MD Brain MRI 10/30/17 0000 Signed Impressions: Service Date/Time: Monday, October 30, 2017 08:55 - CONCLUSION: Moderate- sized enhancing left frontoparietal extra-axial mass characteristic of meningioma as described. Sandip Busch MD Hospital Course Ms. Almendarez underwent a Stereotactic left parietal image-guided craniotomy, resection of meningioma on Oct 30, 2017 for left extra axial mass. Final pathology reports meningioma. A follow up CT Brain is stable. She remains neurologically stable and will be discharged home. She will return 2 weeks postop for staple removal in the office. Pt Condition on Discharge: Good Discharge Disposition: Discharge Home Discharge Instructions DIET: Follow Instructions for: Heart Healthy Diet ACTIVITIES You can perform: Weight Bearing As Sylvia ADDITIONAL Activity Instructio: avoid strenuous activities, avoid falls and head trauma. New Medications: Hydrocodone/Acetaminophen (Hydrocodone-Acetamin 10-325 mg) 10 Mg-325 Mg Tablet 1 TAB PO Q12HR PRN for PAIN SCALE 1 TO 10, #62 TAB 0 Refills Continued Medications: Atorvastatin (Atorvastatin) 20 Mg Tab 20 MG PO HS for Cholesterol Management, #30 TAB 0 Refills Gemfibrozil (Gemfibrozil) 600 Mg Tab 600 MG PO BIDAC, #60 TAB 0 Refills Take 30 minutes prior to breakfast and dinner. Glimepiride (Glimepiride) 4 Mg Tab 4 MG PO DAILY for Blood Sugar Management, #30 TAB 0 Refills Take with breakfast or first main meal Hydrochlorothiazide (Hydrochlorothiazide) 12.5 Mg Tab 12.5 MG PO DAILY, #30 TAB 0 Refills Hydrocodone-Acetaminophen (Hydrocodone-Acetaminophen) 10-325 mg Tab 1 TAB PO Q6H PRN for PAIN, TAB 0 Refills Insulin Glargine Inj (Lantus Inj) 1,000 Unit/10 Ml Vial 40 UNITS SQ HS for Blood Sugar Management, VIAL 0 Refills Levetiracetam (Keppra) 500 Mg Tab 500 MG PO BID for Control Seizures, #60 TAB 0 Refills Lisinopril (Lisinopril) 40 Mg Tab 40 MG PO HS for Blood Pressure Management, #30 TAB 0 Refills Meloxicam (Mobic) 15 Mg Tab 15 MG PO DAILY, TAB 0 Refills Metformin (Metformin) 1,000 Mg Tab 1000 MG PO BIDPC for Blood Sugar Management, #60 TAB 0 Refills Vit C/E/Zn/Coppr/Lutein/Zeaxan (Preservision Areds 2 Softgel) 250-200-40 Capsule 1 CAP PO DAILY Fidelina Hamilton Nov 01, 2017 10:42
--- NOTE | 2017-11-01 10:53 | HHI.NSPN ---
(Fidelina Hamilton) Note Status Status: Progress Note (Fidelina Hamilton) Interval History Interval History Ms Almendarez is a 42-year-old female who presented with recurrent seizures. She was found to have a large dural base frontal parietal mass with suspicion for a meningioma. This was causing mass effect on the underlying brain and was growing in serial MRI's. Surgical resection was indicated. Ms. Almendarez underwent a stereotactic left parietal image-guided craniotomy, resection of meningioma on Oct 30, 2017. 10/31: doing well, c/o postoperative pain. no change to neuro exam. 11/01: reports of mild numbness right hand, otherwise pain controlled, ready to go home. (Fidelina Hamilton) Labs, Micro, & Vital Signs Results Date Time Temp Pulse Resp B/P (MAP) Pulse Ox O2 Delivery O2 Flow Rate FiO2 11/01/17 08:00 98.4 80 18 118/63 (81) 94 11/01/17 04:44 98.3 78 20 110/59 (76) 94 11/01/17 02:07 97.8 81 20 112/57 (75) 95 11/01/17 00:00 97.3 72 18 116/63 (80) 96 10/31/17 21:45 Room Air 10/31/17 20:00 97.8 79 18 118/63 (81) 95 10/31/17 18:00 68 10/31/17 18:00 98.4 72 18 108/65 (79) 100 10/31/17 16:00 72 10/31/17 14:00 72 10/31/17 12:00 74 10/31/17 12:00 98.3 74 20 121/70 (87) 100 Constitutional Vital Signs Date Time Temp Pulse Resp B/P (MAP) Pulse Ox O2 Delivery O2 Flow Rate FiO2 11/01/17 08:00 98.4 80 18 118/63 (81) 94 11/01/17 04:44 98.3 78 20 110/59 (76) 94 11/01/17 02:07 97.8 81 20 112/57 (75) 95 11/01/17 00:00 97.3 72 18 116/63 (80) 96 10/31/17 21:45 Room Air 10/31/17 20:00 97.8 79 18 118/63 (81) 95 10/31/17 18:00 68 10/31/17 18:00 98.4 72 18 108/65 (79) 100 10/31/17 16:00 72 10/31/17 14:00 72 10/31/17 12:00 74 10/31/17 12:00 98.3 74 20 121/70 (87) 100 (Fidelina Hamilton) Review of Systems Constitutional: DENIES: Fever, Chills Cardiovascular: DENIES: Chest pain Neurologic: COMPLAINS OF: Headache (Fidelina Hamilton) Physical Exam Ms. Almendarez is alert, oriented to time, place and person. Speech is fluent. Appears comfortable, smiling. Wound with clean and dry bandaged. KAREN drains intact with serosanguineous CSF Cranial nerve examination: pupils equal, round and reactive to light. Extra- ocular movements are intact. Facial motor are normal and symmetrical. Neck is soft and supple Musculoskeletal: Left upper extremity muscular deformities with evidence of prior reconstructive surgeries. 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 In the lower extremities, strength is 5 /5. Sensory examination is decreased to left arm, otherwise intact to light touch right upper extremity and bilateral lower extremities. Lungs: clear, non labored breathing, no wheezing Heart: regular rate and rhythm (Fidelina Hamilton) Medications Current Medications Current Medications Medications (Trade) Dose Ordered Sig/Katlyn Route PRN Reason Start Time Stop Time Status Last Admin Dose Admin Vancomycin/Sodium Chloride 200 ml @ 200 mls/hr [employer] IV 10/30/17 07:30 11/02/17 07:29 Metoprolol Tartrate (Lopressor) 25 mg [employer] PRN PO SEE LABEL COMMENTS 10/30/17 07:30 11/02/17 07:29 Povidone Iodine (Betadine 5% Antisepsis Kit) 1 applic [employer] PRN EACH NARE SEE LABEL COMMENTS 10/30/17 07:30 11/02/17 07:29 Chlorhexidine Gluconate (Chlorhexidine 2% Cloth) 3 pack [employer] PRN TOPICAL SEE LABEL COMMENTS 10/30/17 07:30 11/02/17 07:29 10/30/17 07:35 Potassium Chloride/Sodium Chloride 1,000 ml @ 100 mls/hr Q10H IV 10/30/17 12:00 11/01/17 02:01 Bisacodyl (Dulcolax Supp) 10 mg DAILY PRN RECTAL SEVERE CONSTIPATION 10/30/17 10:00 Docusate Sodium (Colace) 100 mg BID PO 10/30/17 21:00 11/01/17 09:18 Pantoprazole Sodium (Protonix) 40 mg DAILY PO 10/31/17 09:00 11/01/17 09:20 Pantoprazole Sodium (Protonix Inj) 40 mg DAILY IVP 10/31/17 09:00 Ondansetron HCl (Zofran Inj) 4 mg Q6H PRN IV PUSH NAUSEA OR VOMITING 10/30/17 10:00 Calcium Gluconate (Calcium Gluconate Inj) 1 gm UNSCH PRN IV SEE LABEL COMMENTS 10/30/17 10:00 Potassium Chloride 100 ml @ 50 mls/hr UNSCH PRN IV POTASSIUM LESS THAN 4 10/30/17 10:00 Magnesium Sulfate 4 gm/Sodium Chloride 108 ml @ 108 mls/hr UNSCH PRN IV MAGNESIUM LESS THAN 2 10/30/17 10:00 Acetaminophen/ Hydrocodone Bitart (Modena 10-325 Mg) 1 tab Q4H PRN PO PAIN SCALE 1 TO 5 10/30/17 10:00 Acetaminophen/ Hydrocodone Bitart (Modena 10-325 Mg) 2 tab Q4H PRN PO PAIN SCALE 6 TO 10 10/30/17 10:00 11/01/17 06:19 Morphine Sulfate (Morphine Inj) 2 mg Q2H PRN IV PUSH PAIN SCALE 1 TO 6 10/30/17 10:00 10/31/17 20:32 Morphine Sulfate (Morphine Inj) 4 mg Q2H PRN IV PUSH PAIN SCALE 7 TO 10 10/30/17 10:00 11/01/17 09:23 Acetaminophen (Tylenol) 650 mg Q4H PRN PO TEMPERATURE > 101.5 F 10/30/17 10:00 Atorvastatin Calcium (Lipitor) 20 mg HS PO 10/30/17 21:00 10/31/17 21:28 Gemfibrozil (Lopid) 600 mg BIDAC PO 10/30/17 16:00 11/01/17 06:18 Glimepiride (Amaryl) 4 mg DAILY PO 10/31/17 09:00 11/01/17 09:19 Hydrochlorothiazide (Microzide) 12.5 mg DAILY PO 10/31/17 09:00 10/31/17 08:46 Insulin Detemir (Levemir Inj) 40 units HS SQ 10/30/17 21:00 10/31/17 21:25 Meloxicam (Mobic) 15 mg DAILY PO 10/31/17 09:00 11/01/17 09:20 Metformin HCl (Glucophage) 1,000 mg BIDPC PO 10/30/17 18:00 11/01/17 09:18 Lisinopril (Prinivil) 40 mg HS PO 10/30/17 21:00 10/31/17 21:30 Dextrose (D50w (Vial) Inj) 50 ml UNSCH PRN IV PUSH HYPOGLYCEMIA-SEE COMMENTS 10/30/17 10:15 Glucagon (Glucagon Inj) 1 mg UNSCH PRN OTHER HYPOGLYCEMIA-SEE COMMENTS 10/30/17 10:15 Insulin Aspart (NovoLOG SUPPLEMENTAL SCALE) 1 ACHS SLIDING SCALE SQ 10/30/17 12:00 11/01/17 09:28 Levetriacetam (Keppra) 500 mg BID PO 10/30/17 21:00 11/01/17 09:19 Levetriacetam 500 mg/Sodium Chloride 105 ml @ 400 mls/hr Q12HR IV 10/30/17 21:00 Nicotine (Habitrol 14 Mg Patch.24 Hr) 1 patch DAILY T-DERMAL 10/30/17 21:22 11/01/17 09:17 Miscellaneous Information 1 HS T-DERMAL 10/31/17 21:00 10/31/17 21:32 (Fidelina Hamilton) Medical Decision Making MDM Remarks 42 y/o female s/p stereotactic left parietal image-guided craniotomy, resection of meningioma 10/30/17 (Fidelina Hamilton) Plan Plan Remarks doing well, f/u CT Brain reviewed, stable postop findings, dc KAREN drain cont PT Dr. Gomes cleared to [place] home f/u in 10 days for staple removal (Fidelina Hamilton) Attending Statement The exam, history, and the medical decision-making described in the above note were completed with the assistance of the mid-level provider. I reviewed and agree with the findings presented. I attest that I had a [id number] encounter with the patient on the same day, and personally performed and documented my assessment and findings in the medical record. (Urbano Gomes MD) Fidelina Hamilton Nov 01, 2017 10:53 Urbano Gomes MD Nov 02, 2017 19:59
[2017-11-01 12:00] VITALS: BP 140/72; PULSE 76; RESP 18; TEMP 98.7; O2SAT 96
--- NOTE | 2017-11-01 16:06 | HHI.PR ---
Subjective Remarks Follow up for left parietal meningoma. Patient is doing well. No acute concerns. Neurosurgery is planning to dc her today. Objective Vitals Vital Signs Date Time Temp Pulse Resp B/P (MAP) Pulse Ox O2 Delivery O2 Flow Rate FiO2 11/01/17 12:00 98.7 76 18 140/72 (94) 96 11/01/17 08:00 98.4 80 18 118/63 (81) 94 11/01/17 04:44 98.3 78 20 110/59 (76) 94 11/01/17 02:07 97.8 81 20 112/57 (75) 95 11/01/17 00:00 97.3 72 18 116/63 (80) 96 10/31/17 21:45 Room Air 10/31/17 20:00 97.8 79 18 118/63 (81) 95 10/31/17 18:00 68 10/31/17 18:00 98.4 72 18 108/65 (79) 100 I/O 10/31/17 10/31/17 10/31/17 11/01/17 11/01/17 11/01/17 07:00 15:00 23:00 07:00 15:00 23:00 Intake Total 2000 ml 720 ml 999 ml Output Total 4110 ml 825 ml 70 ml Balance -2110 ml -105 ml 929 ml Intake Oral 560 ml 720 ml IV Total 1440 ml 999 ml Output Urine Total 3950 ml 750 ml Drainage Total 160 ml 75 ml 70 ml # Voids 5 6 # Bowel Movements 0 0 Result Diagram: 10/31/1761110/31/17 06 Objective Remarks GENERAL: Alert, NAD. SKIN: Warm and dry. HEAD: Normocephalic. Dressing is in place, drains in place. EYES: No scleral icterus. No injection or drainage. NECK: Supple, trachea midline. No JVD or lymphadenopathy. CARDIOVASCULAR: Regular rate and rhythm without murmurs, gallops, or rubs. RESPIRATORY: Breath sounds equal bilaterally. No accessory muscle use. GASTROINTESTINAL: Abdomen soft, non-tender, nondistended. MUSCULOSKELETAL: No cyanosis, or edema. BACK: Nontender without obvious deformity. No CVA tenderness. Procedures 10/30/2017 Stereotactic left parietal image-guided craniotomy, resection of meningioma. Microsurgical dissection A/P Problem List: (1) S/P craniotomy ICD Code: Z98.890 - Other specified postprocedural states Assessment and Plan Ms Almendarez is a 42-year-old female who presented with recurrent seizures. She was found to have a large dural base frontal parietal mass with suspicion for a meningioma. This was causing mass effect on the underlying brain and was growing in serial MRI's. Surgical resection was indicated. Patient underwent craniotomy with resection of frontoparietal mass. Left parietal meningoma s/p surgical resection 10/30/2017. Pain meds, Keppra 500mg BID. Diabetes mellitus Currently pt is on Glimepiride 4mg Qday, Metformin 1000mg BID and Levemir 45 units as well as medium sliding scale insulin. Hyperlipidemia Hypertension Continue Atorvastatin and Gemfibrozil. Continue Lisinopril 40mg and HCTZ 12.5mg Full code. SCDs. Nidia Chadwick DO Nov 01, 2017 4:06 pm
== END 2017-11-01 15:07 | disposition home or self-care (01) | DRG 27 ==
LOC: HSDI 06:49 → N03A 15:26 → N05B 10-31 20:40
PROVIDERS: ADMIT Neurological Surgery; ATTEND Neurological Surgery
PROC: 4A11X4G Monitoring of Peripheral Nervous Electrical Activity, Intraoperative, External Approach (ICD-10-PCS; 2017-10-30)
PROC: 00B00ZZ Excision of Brain, Open Approach (ICD-10-PCS; principal; 2017-10-30 09:39)
DX: D32.9 Benign neoplasm of meninges, unspecified (principal); E66.01 Morbid (severe) obesity due to excess calories; I10 Essential (primary) hypertension; E11.9 Type 2 diabetes mellitus without complications; G40.909 Epilepsy, unspecified, not intractable, without status epilepticus; E78.5 Hyperlipidemia, unspecified; Z72.0 Tobacco use; Z79.4 Long term (current) use of insulin; Z68.38 Body mass index [BMI] 38.0-38.9, adult; Z86.14 Personal history of Methicillin resistant Staphylococcus aureus infection
CPT/HCPCS: 70450; 70552; 80048; 81001; 82948; 85025; 85730; 86850; 86900; 86901; 88307; 93005; 94150; A9579; C1713; J0131; J0690; J1100; J1580; J1815; J1940; J1953; J2150; J2250; J2270; J2370; J2405; J2710; J3010; J3480; J7040; J7120; Q2009